=== PATIENT | female | born 1955 | race American Indian/Alaskan Native ===

== ENCOUNTER 2016-05-25 14:42 | Outpatient (CLI) | payer BC ==
--- NOTE | 2016-05-25 15:25 | Cat Scan Report ---
CT scan of head without contrast: History: Left leg numbness. Findings: Ventricles are normal in size and midline in location. No evidence of acute ischemia, hemorrhage or mass. No extra-axial fluid collection. Normal brainstem and cerebellum. Normal sinuses. Suspicion of acute/chronic right mastoiditis. Impression: No acute intracranial abnormality. Right acute/chronic mastoiditis.
--- NOTE | 2016-05-26 11:44 | Vascular Lab Report ---
CAROTID DUPLEX STUDY: RIGHT PSVEDV CCA PROX:9223 CCA DIST:9125 ICA PROX:6518 ICA MID:9634 ICA DIST:7828 ECA: 53 VERT: 48 19 LEFT PSVEDV CCA PROX:9020 CCA DIST:8024 ICA PROX:8122 ICA MID:7033 ICA DIST:8434 ECA: 72 VERT: 32 9 REASON FOR EXAM: Left-sided numbness. COMMENTS ON THE RIGHT: Doppler frequency analysis is consistent with 16 to 49 percent diameter reduction of the internal carotid artery. Minimal amount of plaque is seen. The common carotid artery is patent. The external carotid artery is patent. The vertebral artery has antegrade flow. COMMENTS ON THE LEFT: Doppler frequency analysis is consistent with 16 to 49 percent diameter reduction of the internal carotid artery. Minimal amount of plaque is seen. The common carotid artery is patent. The external carotid artery is patent. The vertebral artery has antegrade flow. IMPRESSION: Less than 50% diameter reduction in the internal carotid arteries bilaterally. Consider repeat carotid artery duplex in 12 months.
== END 2016-05-25 14:43 | disposition home or self-care (01) ==
LOC: VAS 14:42
PROVIDERS: ATTEND Family Medicine
DX: I65.23 Occlusion and stenosis of bilateral carotid arteries (principal); H70.11 Chronic mastoiditis, right ear
CPT/HCPCS: 70450; 93880

== ENCOUNTER 2016-06-07 17:04 | Emergency (ER) | payer BC ==
[2016-06-07 17:55] LABS: Basophils % (Auto) 0.6 % (0.0-1.8); Eosinophils % (Auto) 1.2 % (0.0-4.3); Hemoglobin 13.3 gm/dl (10.1-14.3); Mean Corpuscular HGB Conc 32 % (30-34); Mean Corpuscular Volume 79 fl (79-97); Platelet Count 330 K/mm3 (140-440); Red Cell Distribution Width 15.6 % (13.2-15.2); White Blood Count 6.4 K/mm3 (4.5-11.0)
[2016-06-07 18:05] LABS: Mean Corpuscular Hemoglobin 26 pg (28-32)
[2016-06-07 18:14] LABS: Creatine Kinase MB 2.2 ng/mL (0.0-4.0)
[2016-06-07 18:16] LABS: Anion Gap 19 mmol/L; BUN/Creatinine Ratio 13.75; Blood Urea Nitrogen 11 mg/dL (7-17); Calcium 9.3 mg/dL (8.4-10.2); Carbon Dioxide 25 mmol/L (22-30); Chloride 99.1 mmol/L (98-107); Creatine Kinase 135 units/L (30-135); Glucose 92 mg/dL (65-100); Sodium 139 mmol/L (137-145)
[2016-06-07 23:02] LABS: Creatine Kinase MB 1.6 ng/mL (0.0-4.0); INR 1.03 (0.87-1.13)
[2016-06-07 23:03] LABS: Alanine Aminotransferase 29 units/L (7-56); Albumin 4.5 g/dL (3.9-5); Albumin/Globulin Ratio 1.6 %; Alkaline Phosphatase 119 units/L (35-129); Bilirubin,Total 0.2 mg/dL (0.1-1.2); Creatine Kinase 125 units/L (30-135); Total Protein 7.4 g/dL (6.3-8.2)
[2016-06-07 23:04] LABS: Bilirubin,Direct < 0.2 mg/dL (0-0.2)
[2016-06-08] MEDS ORDERED: MOTRIN PO ONE (05:01)
[2016-06-08] MEDS ORDERED: TYLENOL PO ONE (05:05)
--- NOTE | 2016-06-08 05:24 | Emergency Department Report ---
ED Neuro Deficit HPI - General Chief Complaint: Chest Pain Stated Complaint: CP/TINGLING ON LEFT SIDE Time Seen by Provider: 06/08/16 02:24 Source: patient Mode of arrival: Ambulatory Limitations: No Limitations - History of Present Illness Initial Comments: 61F PMH HTN, Obesity presents with complaint of 2 weeks of left upper extremity left lower extremity and left facial paresthesias. Patient describes sensation of persistent and intensifying tingling and numbness in the described areas. Patient also states that she has had intermittent chest pains sporadically over the last week lasting a few seconds with some radiation to left shoulder. Patient went to her primary care doctor approximately 2 weeks ago for these symptoms had an outpatient CT and a carotid Doppler done. Both tests unremarkable except for suggestion of possible right-sided mastoiditis. Patient started on antibiotics by her primary care doctor for mastoiditis. Patient denies any fever no chills no earache states that she primarily is concerned about the tingling sensation which has persisted and intensified over the last 2 weeks and awake alert and oriented 3 does not appear to be in acute distress fully ambulatory without assistance speaking in full sentences and no slurred speech no facial droop. Patient states she takes aspirin 81 mg twice a day. Onset/Timin -: week(s) Location: left face, left arm, left leg Place: home Severity: moderate Quality: numb, tingling, constant Worsens With: none - Related Data Home Medications: Home Medications Medication Instructions Recorded Confirmed Last Taken Amlodipine Besylate [Norvasc] 2.5 mg PO DAILY 06/08/16 06/08/16 Unknown Gabapentin [Neurontin] 100 mg PO BID 06/08/16 06/08/16 Unknown traMADol [Ultram] 50 mg PO DAILY PRN 06/08/16 06/08/16 Unknown Allergies/Adverse Reactions: Allergies Allergy/AdvReac Type Severity Reaction Status Date / Time fluticasone propionate Allergy Dizziness Unverified 05/25/16 14:45 [From Flonase] ED Review of Systems ROS: Stated complaint: CP/TINGLING ON LEFT SIDE Other details as noted in HPI ED Past Medical Hx - Past Medical History Hx Hypertension: Yes Hx Arthritis: Yes - Surgical History Hx Breast Surgery: Yes (breast reduction) Additional Surgical History: - Social History Smoking Status: Never Smoker Substance Use Type: None - Medications Home Medications: Home Medications Medication Instructions Recorded Confirmed Last Taken Type Amlodipine Besylate [Norvasc] 2.5 mg PO DAILY 06/08/16 06/08/16 Unknown History Gabapentin [Neurontin] 100 mg PO BID 06/08/16 06/08/16 Unknown History traMADol [Ultram] 50 mg PO DAILY PRN 06/08/16 06/08/16 Unknown History ED Neuro Physical Exam - General Limitations: No Limitations General appearance: alert, in no apparent distress Suspected Stroke: Yes - Head Head exam: Present: atraumatic, normocephalic - Eye Eye exam: Present: normal appearance, PERRL, EOMI - ENT ENT exam: Present: mucous membranes moist - Neck Neck exam: Present: normal inspection - Respiratory Respiratory exam: Present: normal lung sounds bilaterally. Absent: respiratory distress - Cardiovascular Cardiovascular Exam: Present: regular rate, normal rhythm. Absent: systolic murmur, diastolic murmur, rubs, gallop - GI/Abdominal GI/Abdominal exam: Present: soft, normal bowel sounds - Extremities Exam Extremities exam: Present: normal inspection - Back Exam Back exam: Present: normal inspection - Neurological Exam Neurological exam: Present: alert, oriented X3, CN II-XII intact, normal gait - NIHSS Assessment Interval: 7-10 Days 1a. Level of Consciousness: alert 1b. LOC Questions: answers correctly 1c. LOC Commands: performs tasks correctly 2. Best Gaze: normal 3. Visual: no visual loss 4. Facial Palsy: normal symmetrical movement 5b. Motor Arm Right: no drift 5a. Motor Arm Left: no drift 6a. Motor Leg Left: no drift 6b. Motor Leg Right: no drift 7. Limb Ataxia: absent 8. Sensory: normal 9. Best Language: no aphasia 10. Dysarthria: normal 11. Extinction/Inattention: no abnormality Total Score: 0 Stroke Severity: No Stroke Symptoms - Psychiatric Psychiatric exam: Present: normal affect, normal mood - Skin Skin exam: Present: warm, dry, intact, normal color. Absent: rash ED Course Vital Signs 06/07/16 06/07/16 06/08/16 17:22 21:53 00:34 Temperature 99.2 F 98.7 F 98.9 F Pulse Rate 94 H 89 101 H Respiratory 22 20 16 Rate Blood Pressure 145/88 135/76 Blood Pressure 140/85 [Left] O2 Sat by Pulse 100 98 Oximetry 0206/08/16 06/08/16 03:24 06:49 09:06 Temperature Pulse Rate 90 88 97 H Respiratory 18 20 18 Rate Blood Pressure Blood Pressure 138/86 142/86 117/78 [Left] O2 Sat by Pulse 100 97 99 Oximetry - Lab Data Result diagrams: 06/07/16 17:42 06/07/16 17:42 Lab Results 06/07/16 06/07/16 06/07/16 Range/Units 17:42 17:42 22:23 WBC 6.4 (4.5-11.0) K/mm3 RBC 5.20 H (3.65-5.03) M/mm3 Hgb 13.3 (10.1-14.3) gm/dl Hct 41.0 (30.3-42.9) % MCV 79 (79-97) fl MCH 26 L (28-32) pg MCHC 32 (30-34) % RDW 15.6 H (13.2-15.2) % Plt Count 330 (140-440) K/mm3 Lymph % (Auto) 36.7 H (13.4-35.0) % [place] % (Auto) 7.8 H (0.0-7.3) % Eos % (Auto) 1.2 (0.0-4.3) % Baso % (Auto) 0.6 (0.0-1.8) % Lymph # 2.4 (1.2-5.4) K/mm3 [place] # 0.5 (0.0-0.8) K/mm3 Eos # 0.1 (0.0-0.4) K/mm3 Baso # 0.0 (0.0-0.1) K/mm3 Seg Neutrophils % 53.7 (40.0-70.0) % Seg Neutrophils # 3.4 (1.8-7.7) K/mm3 PT (12.2-14.9) Sec. INR (0.87-1.13) Sodium 139 (137-145) mmol/L Potassium 4.0 (3.6-5.0) mmol/L Chloride 99.1 (98-107) mmol/L Carbon Dioxide 25 (22-30) mmol/L Anion Gap 19 mmol/L BUN 11 (7-17) mg/dL Creatinine 0.8 (0.7-1.2) mg/dL Estimated GFR > 60 ml/min BUN/Creatinine Ratio 13.75 % Glucose 92 (65-100) mg/dL Calcium 9.3 (8.4-10.2) mg/dL Magnesium (1.7-2.3) mg/dL Total Bilirubin (0.1-1.2) mg/dL Direct Bilirubin (0-0.2) mg/dL Indirect Bilirubin mg/dL AST (5-40) units/L ALT (7-56) units/L Alkaline Phosphatase (35-129) units/L Total Creatine Kinase 135 125 (30-135) units/L CK-MB (CK-2) 1.6 (0.0-4.0) ng/mL CK-MB (CK-2) Rel Index 1.6 1.2 (0-4) Troponin T < 0.010 < 0.010 (0.00-0.029) ng/mL Total Protein (6.3-8.2) g/dL Albumin (3.9-5) g/dL Albumin/Globulin Ratio % Urine Color (Yellow) Urine Turbidity (Clear) Urine pH (5.0-7.0) Ur Specific [place] (1.003-1.030) Urine Protein (Negative) mg/dL Urine Glucose (UA) (Negative) mg/dL Urine Ketones (Negative) mg/dL Urine Blood (Negative) Urine Nitrite (Negative) Urine Bilirubin (Negative) Urine Urobilinogen (<2.0) mg/dL Ur Leukocyte Esterase (Negative) Urine WBC (Auto) (0.0-6.0) /HPF Urine RBC (Auto) (0.0-6.0) /HPF U Epithel Cells (Auto) (0-13.0) /HPF Urine Bacteria (Auto) (Negative) /HPF Urine Mucus /HPF 06/07/16 06/07/16 06/07/16 Range/Units 22:23 22:23 22:23 WBC (4.5-11.0) K/mm3 RBC (3.65-5.03) M/mm3 Hgb (10.1-14.3) gm/dl Hct (30.3-42.9) % MCV (79-97) fl MCH (28-32) pg MCHC (30-34) % RDW (13.2-15.2) % Plt Count (140-440) K/mm3 Lymph % (Auto) (13.4-35.0) % [place] % (Auto) (0.0-7.3) % Eos % (Auto) (0.0-4.3) % Baso % (Auto) (0.0-1.8) % Lymph # (1.2-5.4) K/mm3 [place] # (0.0-0.8) K/mm3 Eos # (0.0-0.4) K/mm3 Baso # (0.0-0.1) K/mm3 Seg Neutrophils % (40.0-70.0) % Seg Neutrophils # (1.8-7.7) K/mm3 PT 13.4 (12.2-14.9) Sec. INR 1.03 (0.87-1.13) Sodium (137-145) mmol/L Potassium (3.6-5.0) mmol/L Chloride (98-107) mmol/L Carbon Dioxide (22-30) mmol/L Anion Gap mmol/L BUN (7-17) mg/dL Creatinine (0.7-1.2) mg/dL Estimated GFR ml/min BUN/Creatinine Ratio % Glucose (65-100) mg/dL Calcium (8.4-10.2) mg/dL Magnesium 2.2 (1.7-2.3) mg/dL Total Bilirubin 0.2 (0.1-1.2) mg/dL Direct Bilirubin < 0.2 (0-0.2) mg/dL Indirect Bilirubin 0.0 mg/dL AST 24 (5-40) units/L ALT 29 (7-56) units/L Alkaline Phosphatase 119 (35-129) units/L Total Creatine Kinase (30-135) units/L CK-MB (CK-2) (0.0-4.0) ng/mL CK-MB (CK-2) Rel Index (0-4) Troponin T (0.00-0.029) ng/mL Total Protein 7.4 (6.3-8.2) g/dL Albumin 4.5 (3.9-5) g/dL Albumin/Globulin Ratio 1.6 % Urine Color (Yellow) Urine Turbidity (Clear) Urine pH (5.0-7.0) Ur Specific [place] (1.003-1.030) Urine Protein (Negative) mg/dL Urine Glucose (UA) (Negative) mg/dL Urine Ketones (Negative) mg/dL Urine Blood (Negative) Urine Nitrite (Negative) Urine Bilirubin (Negative) Urine Urobilinogen (<2.0) mg/dL Ur Leukocyte Esterase (Negative) Urine WBC (Auto) (0.0-6.0) /HPF Urine RBC (Auto) (0.0-6.0) /HPF U Epithel Cells (Auto) (0-13.0) /HPF Urine Bacteria (Auto) (Negative) /HPF Urine Mucus /HPF 06/08/16 Range/Units Unknown WBC (4.5-11.0) K/mm3 RBC (3.65-5.03) M/mm3 Hgb (10.1-14.3) gm/dl Hct (30.3-42.9) % MCV (79-97) fl MCH (28-32) pg MCHC (30-34) % RDW (13.2-15.2) % Plt Count (140-440) K/mm3 Lymph % (Auto) (13.4-35.0) % [place] % (Auto) (0.0-7.3) % Eos % (Auto) (0.0-4.3) % Baso % (Auto) (0.0-1.8) % Lymph # (1.2-5.4) K/mm3 [place] # (0.0-0.8) K/mm3 Eos # (0.0-0.4) K/mm3 Baso # (0.0-0.1) K/mm3 Seg Neutrophils % (40.0-70.0) % Seg Neutrophils # (1.8-7.7) K/mm3 PT (12.2-14.9) Sec. INR (0.87-1.13) Sodium (137-145) mmol/L Potassium (3.6-5.0) mmol/L Chloride (98-107) mmol/L Carbon Dioxide (22-30) mmol/L Anion Gap mmol/L BUN (7-17) mg/dL Creatinine (0.7-1.2) mg/dL Estimated GFR ml/min BUN/Creatinine Ratio % Glucose (65-100) mg/dL Calcium (8.4-10.2) mg/dL Magnesium (1.7-2.3) mg/dL Total Bilirubin (0.1-1.2) mg/dL Direct Bilirubin (0-0.2) mg/dL Indirect Bilirubin mg/dL AST (5-40) units/L ALT (7-56) units/L Alkaline Phosphatase (35-129) units/L Total Creatine Kinase (30-135) units/L CK-MB (CK-2) (0.0-4.0) ng/mL CK-MB (CK-2) Rel Index (0-4) Troponin T (0.00-0.029) ng/mL Total Protein (6.3-8.2) g/dL Albumin (3.9-5) g/dL Albumin/Globulin Ratio % Urine Color Straw (Yellow) Urine Turbidity Clear (Clear) Urine pH 6.0 (5.0-7.0) Ur Specific [place] 1.010 (1.003-1.030) Urine Protein <15 mg/dl (Negative) mg/dL Urine Glucose (UA) Neg (Negative) mg/dL Urine Ketones Neg (Negative) mg/dL Urine Blood Neg (Negative) Urine Nitrite Neg (Negative) Urine Bilirubin Neg (Negative) Urine Urobilinogen < 2.0 (<2.0) mg/dL Ur Leukocyte Esterase Sm (Negative) Urine WBC (Auto) 2.0 (0.0-6.0) /HPF Urine RBC (Auto) 3.0 (0.0-6.0) /HPF U Epithel Cells (Auto) 6.0 (0-13.0) /HPF Urine Bacteria (Auto) 4+ (Negative) /HPF Urine Mucus Few /HPF - Medical Decision Making A/P: Left upper extremity left lower extremity and facial paresthesias 1-I discussed case with Dr. Maxwell as pt is c/o persistent and intensifying paresthesias of the left side of her body including face arm and leg. Patient had negative CT 2 weeks ago but is experiencing persistent symptoms despite use of gabapentin and is already on daily aspirin. Patient has no focal neurological deficit no weakness and no sensory deficit no facial droop no slurred speech no upper or lower extremity drift and no ataxia no visual field deficit however is complaining of these persistent sensory symptoms. I called on-call neurologist Dr. Weldon and discussed case with him, recommendation to do a noncontrast MRI of brain for potential thalamic infarct based on history and symptoms. I informed patient that she will require an MRI as part of the workup and that she may have to wait a few hours in order to obtain MRI 2-I signed out pt to OSEAS Marshall, will /fu MRI result and admit if it shows any evidence of stroke or DC w/ neuro f/u if negative 3- UPDATE , pt had unremarkable MRI brain noncon, pt given f/u with outpt neuro and discharged as per d/w ED attending and neuro consult by OSEAS Marshall- OSEAS Siegel. Critical care attestation.: If time is entered above; I have spent that time in minutes in the direct care of this critically ill patient, excluding procedure time. ED Disposition Clinical Impression: Arm paresthesia, right, Facial paresthesia, Chest pain, Sore throat (viral) Disposition: DISCHARGED TO HOME OR SELFCARE Is pt being admited?: No Does the pt Need Aspirin: Yes Condition: Stable Instructions: Chest Pain (ED) Referrals: IRLANDA ROBERTS MD [Staff Physician] - 3-5 Days [facility] [Staff Physician] - 3-5 Days PRIMARY CARE, [Primary Care Provider] - 3-5 Days Forms: Work/School Release Form(ED)
[2016-06-08 05:51] LABS: Bacteria,Urine 4+ /HPF (Negative); Bilirubin,Urine NEG (Negative); Blood,Urine NEG (Negative); Ketones,Urine NEG (Negative); Leukocyte Esterase,Urine SM (Negative); Mucus,Urine FEW /HPF; Nitrite,Urine NEG (Negative); Protein,Urine <15 mg/dL mg/dL (Negative); Urobilinogen,Urine < 2.0 mg/dL (<2.0)
--- NOTE | 2016-06-08 07:46 | XRay Report ---
ROUTINE CHEST, TWO VIEWS: HISTORY: chest pain. The trachea, heart, mediastinal contour, lung alvarado and bony thorax are unremarkable. IMPRESSION: Unremarkable chest x-ray. No change since 02/20/14.
--- NOTE | 2016-06-08 08:34 | Magnetic Resonance Report ---
MRI OF THE BRAIN WITHOUT CONTRAST: HISTORY: CVA PROCEDURE: Multiplanar, multisequence MR imaging of the brain without IV contrast was performed. COMPARISON: CT head dated 05/25/16. FINDINGS: The brain parenchyma signal intensity and its aldana white interface are within normal limits on all sequences. No evidence for acute ischemia, hemorrhage or mass. No chronic infarct or extra-axial fluid collection. The midline structures are central. The basal cisterns are patent. Normal ventricular size. The orbital cavities and sella turcica demonstrate no abnormality. The visualized paranasal sinuses and mastoid air cells are well aerated. Trace fluid is noted in the right mastoid air cells. IMPRESSION: Unremarkable non-enhanced MRI of the brain.
--- NOTE | 2016-06-08 08:46 | Emergency Department Report ---
HPI - General Chief Complaint: Chest Pain Time Seen by Provider: 06/08/16 02:24 - HPI HPI: 61-year-old female presents to the ED with paresthesias of face and arm as well as CP. seen by OSEAS Siegel. Patient was carried over to my shift for MRI of the brain. MRI is negative for stroke of the thalamus as this was a concern with presenting symptoms. CP workup is negative. Patient in no acute distress at this time. VSS for DC. I did not do history and physical of my own as it was already done by previous provider. ED Past Medical Hx - Past Medical History Hx Hypertension: Yes Hx Arthritis: Yes - Surgical History Hx Breast Surgery: Yes (breast reduction) Additional Surgical History: - Social History Smoking Status: Never Smoker Substance Use Type: None - Medications Home Medications: Home Medications Medication Instructions Recorded Confirmed Last Taken Type Amlodipine Besylate [Norvasc] 2.5 mg PO DAILY 06/08/16 06/08/16 Unknown History Gabapentin [Neurontin] 100 mg PO BID 06/08/16 06/08/16 Unknown History traMADol [Ultram] 50 mg PO DAILY PRN 06/08/16 06/08/16 Unknown History ED Review of Systems ROS: Stated complaint: CP/TINGLING ON LEFT SIDE Other details as noted in HPI Physical Exam - Physical Exam Vital Signs: Vital Signs 06/07/16 06/07/16 06/08/16 17:22 21:53 00:34 Temperature 99.2 F 98.7 F 98.9 F Pulse Rate 94 H 89 101 H Respiratory 22 20 16 Rate Blood Pressure 145/88 135/76 Blood Pressure 140/85 [Left] O2 Sat by Pulse 100 98 Oximetry 06/08/16 06/08/16 03:24 06:49 Temperature Pulse Rate 90 88 Respiratory 18 20 Rate Blood Pressure Blood Pressure 138/86 142/86 [Left] O2 Sat by Pulse 100 97 Oximetry ED Course Vital Signs 06/07/16 06/07/16 06/08/16 17:22 21:53 00:34 Temperature 99.2 F 98.7 F 98.9 F Pulse Rate 94 H 89 101 H Respiratory 22 20 16 Rate Blood Pressure 145/88 135/76 Blood Pressure 140/85 [Left] O2 Sat by Pulse 100 98 Oximetry 06/08/16 06/08/16 03:24 06:49 Temperature Pulse Rate 90 88 Respiratory 18 20 Rate Blood Pressure Blood Pressure 138/86 142/86 [Left] O2 Sat by Pulse 100 97 Oximetry ED Medical Decision Making - Lab Data Result diagrams: 06/07/16 17:42 06/07/16 17:42 Critical care attestation.: If time is entered above; I have spent that time in minutes in the direct care of this critically ill patient, excluding procedure time. ED Disposition Clinical Impression: Arm paresthesia, right, Facial paresthesia, Chest pain, Sore throat (viral) Disposition: DISCHARGED TO HOME OR SELFCARE Is pt being admited?: No Does the pt Need Aspirin: No Condition: Stable Instructions: Chest Pain (ED) Referrals: PRIMARY CARE, [Primary Care Provider] - 3-5 Days IRLANDA ROBERTS MD [Staff Physician] - 3-5 Days SHARAD SANTILLAN MD [Staff Physician] - 3-5 Days Forms: Work/School Release Form(ED) Time of Disposition: 08:47
[2016-06-08 09:07] VITALS: BP 117/78
== END 2016-06-08 09:06 | disposition home or self-care (01) ==
LOC: ED 17:04
DX: R20.8 Other disturbances of skin sensation (principal); R07.9 Chest pain, unspecified; J06.9 Acute upper respiratory infection, unspecified; I10 Essential (primary) hypertension; M19.90 Unspecified osteoarthritis, unspecified site; Z88.0 Allergy status to penicillin
CPT/HCPCS: 36415; 70551; 71020; 80048; 80074; 81001; 82550; 82553; 83735; 84484; 85025; 85610; 93005; 93010

== ENCOUNTER 2016-08-26 13:00 | Outpatient (CLI) | payer BC ==
--- NOTE | 2016-08-26 16:02 | Mammography Report ---
BILATERAL MAMMOGRAM with CAD: HISTORY:Cancer screening. Comparison study is dated June 04, 2014. FINDINGS: The breasts are almost entirely fat (<25% glandular). No mass, distortion, suspicious calcification, or skin change is seen. IMPRESSION: Negative mammogram. There is no mammographic evidence of malignancy. RECOMMENDATION: Follow-up per ACS guidelines. BI-RADS CATEGORY: 1 = Negative ACR BI-RADS MAMMOGRAPHIC CODES: 0 = Needs additional imaging evaluation; 1 = Negative; 2 = Benign; 3 = Probably benign; 4 = Suspicious; 5 = Malignant; 6 = Known biopsy-proven malignancy COMMENT: 1. Dense breast tissue, i.e., adenosis, fibrocystic changes, etc., may obscure an underlying neoplasm. 2. Approximately 10% of cancers are not detected with mammography. 3. A negative mammography report should not delay biopsy if a clinically suspicious mass is present. COMMENT: Patient follow-up letters are generated in [facility].
== END 2016-08-26 13:01 | disposition home or self-care (01) ==
LOC: MAMMO 13:00
PROVIDERS: ATTEND Family Medicine
DX: Z12.31 Encounter for screening mammogram for malignant neoplasm of breast (principal)
CPT/HCPCS: 77067; G0202

== ENCOUNTER 2017-09-06 07:24 | Outpatient (CLI) | payer OTHER ==
--- NOTE | 2017-09-06 11:29 | Mammography Report ---
BILATERAL DIGITAL SCREENING MAMMOGRAM with CAD: 09/06/17 07:24:00 CLINICAL: Routine screening. COMPARISON:08/26/16 FINDINGS: The breasts are almost entirely fatty. No mass, architectural distortion or suspicious calcifications. IMPRESSION: No mammographic evidence of malignancy. BI-RADS CATEGORY: 1 - - Negative RECOMMENDATION: Routine mammographic screening in one year. COMMENT: Patient follow-up letters are generated by our [employer] application.
== END 2017-09-06 07:25 | disposition home or self-care (01) ==
LOC: MAMMO 07:24
PROVIDERS: ATTEND Family Medicine
DX: Z12.31 Encounter for screening mammogram for malignant neoplasm of breast (principal)
CPT/HCPCS: 77067

== ENCOUNTER 2018-12-04 13:59 | Outpatient (CLI) | payer OTHER ==
--- NOTE | 2018-12-05 09:07 | Mammography Report ---
BONE DEXA CLINICAL: Postmenopausal TECHNIQUE: 2 site bone DEXA performed on an Hologic scanner. FINDINGS: The average BMD of the lumbar spine L1-L4 is 0.998g/cm squared with a T score of -0.4 and a Z score o f +0.3. The average total BMD of the right hip is 0.932 g/cm squared with a T score of -0.1and a Z score of + 0.2. IMPRESSION: 1. WHO classification: Normal with average fracture risk based on spine measurements. 2. WHO classification Normal with average fracture risk based on right hip measurements. RECOMMENDATION: Clinical correlation and routine screening. Definitions: BMD equal bone mineral density T score = BMD related to peak bone mass of young adult (Cathy expressed an standard deviation) Z score = age-matched BMD expressed in SD World health organization (WHO) diagnostic criteria Normal T score greater than equal to 1 standard deviation Osteopenia T score between -1 and -2.4 standard deviation Osteoporosis T score -2.5 standard deviation or below. Note: BMD is not the only risk factor for fracture; also consider factors such as the patient's age, risk of falling, previous osteoporotic fracture, family history of osteoporotic fractures, current sm oker and low body weight. Z scores are not calculated if greater than 80 years of age. Signer Name: Marvin Triana MD Signed: 12/05/2018 9:03 AM Workstation Name: [id number]
--- NOTE | 2018-12-05 09:17 | Mammography Report ---
BILATERAL DIGITAL SCREENING MAMMOGRAM WITH CAD INDICATION: Routine screening mammography. TECHNIQUE: Digital bilateral 2D mammography was obtained in the craniocaudal and mediolateral obliq ue projections. This examination was interpreted with the benefit of Computer-Aided Detection analysi s. COMPARISON: 09/06/2017 FINDINGS: Breast Density: The breasts are almost entirely fatty. No mass, architectural distortion or suspicious calcifications. IMPRESSION:No mammographic evidence of malignancy. BI-RADS Category 1: Negative. No mammographic evidence of malignancy. Recommend routine screening m ammography in one year. A "normal" or negative report should not discourage follow up or biopsy of a clinically significant f inding. A written summary of these findings will be mailed to the patient. The patient will be entered into a mammography reporting system which will generate a reminder letter for the patient's next appointmen t at the appropriate interval. The [employer] recommends yearly mammograms starting at age 40 and continuing as l jose as a woman is in good health. Breast MRI is recommended for women with an approximate 20-25% or greater lifetime risk of breast cancer, including women with a strong family history of breast or ova nikolas cancer or who have been treated for Hodgkin's disease. Signer Name: Marvin Triana MD Signed: 12/05/2018 9:12 AM Workstation Name: [id number]
== END 2018-12-04 14:00 | disposition home or self-care (01) ==
LOC: MAMMO 13:59
PROVIDERS: ATTEND Family Medicine
DX: Z12.31 Encounter for screening mammogram for malignant neoplasm of breast (principal); I10 Essential (primary) hypertension; Z78.0 Asymptomatic menopausal state
CPT/HCPCS: 77067; 77080

== ENCOUNTER 2020-06-06 16:47 | Emergency (ER) | payer OTHER ==
[2020-06-06] MEDS ORDERED: ASPIRIN 325 MG TAB PO ONE (17:34)
--- NOTE | 2020-06-06 17:37 | Event Note ---
ED Screening Note Date of service: 06/06/20 Time: 17:32 ED Screening Note: 65-year-old female with a past medical history of prediabetes presents with mid chest pain with as well as right-sided back pain. Patient states pain is worsened with yawning and deep breaths. Patient states symptoms started last night and got worse today. She is not on any medications ttp mid chest This initial assessment/diagnostic orders/clinical plan/treatment(s) is/are subject to change based on patients health status, clinical progression and re- assessment by fellow clinical providers in the ED. Further treatment and workup at subsequent clinical providers discretion. Patient/guardian urged not to elope from the ED as their condition may be serious if not clinically assessed and managed. Initial orders include: Labs, EKG, chest x-ray
--- NOTE | 2020-06-06 17:59 | XRay Report ---
XR chest routine 2V INDICATION / CLINICAL INFORMATION: Chest Pain COMPARISON: None available. FINDINGS: SUPPORT DEVICES: None. HEART / MEDIASTINUM: No significant abnormality. LUNGS / PLEURA: Lungs are clear. Costophrenic sulci are sharp. No pneumothorax. ADDITIONAL FINDINGS: No significant additional findings. IMPRESSION: 1. No acute findings. Signer Name: Pankaj Waller MD Signed: 06/06/2020 5:54 PM Workstation Name: [id number]
[2020-06-06 18:37] LABS: Basophils % (Auto) 0.3 % (0.0-1.8); Eosinophils # (Auto) 0.1 K/mm3 (0.0-0.4); Eosinophils % (Auto) 1.6 % (0.0-4.3); Hematocrit 40.9 % (30.3-42.9); Hemoglobin 13.5 gm/dl (10.1-14.3); Lymphocytes # (Auto) 2.8 K/mm3 (1.2-5.4); Lymphocytes % (Auto) 47.4 % (13.4-35.0); Mean Corpuscular HGB Conc 33 % (30-34); Mean Corpuscular Volume 80 fl (79-97); Monocytes # (Auto) 0.4 K/mm3 (0.0-0.8); Platelet Count 349 K/mm3 (140-440); Red Cell Distribution Width 16.2 % (13.2-15.2)
[2020-06-06 18:46] LABS: BUN/Creatinine Ratio 16; Blood Urea Nitrogen 13 mg/dL (7-17); Calcium 9.8 mg/dL (8.4-10.2); Hemolysis Index 0
--- NOTE | 2020-06-06 20:49 | Emergency Department Report ---
ED Chest Pain HPI - General Chief Complaint: Chest Pain Stated Complaint: CHEST PAIN/RT SIDED PAIN PUI?: No Time Seen by Provider: 06/06/20 20:15 Source: patient Mode of arrival: Ambulatory Limitations: No Limitations - History of Present Illness Initial Comments: Patient is a 65-year-old female who presents emergency room with complaints of chest pain and right upper quadrant abdominal pain. Patient states that her symptoms started this morning at 10 AM. Patient states that her chest pain is an 8 out of 10. Patient states her chest pain is in her right chest and right sternum. Patient states the pain is better with rest. Patient states the pain is worse with deep breath and movement. Patient denies fever or chills. Patient denies nausea vomiting. Patient denies shortness of breath. Patient denies diaphoresis. Patient also complains of right upper quadrant abdominal pain. Patient states the abdominal pain is in the right upper quadrant radiates to her back. Patient denies changes in pain with eating. Patient states that the pain is better with rest and worse with movement. Patient denies fever or chills. Patient denies nausea vomiting. Patient denies diarrhea. Patient states the abdominal pain is an 8 out of 10. Patient denies recent travel. Patient denies recent international travel. Pat ient denies exposure to the novel coronavirus. Patient denies sick contacts. Patient denies fever and chills. Patient denies cough. Patient denies diarrhea. Patient denies coming in contact with anybody with symptoms of the novel coronavirus. MD Complaint: chest pain -: Sudden Onset: during rest Pain Location: substernal, right chest Severity: severe Severity scale (0 -10): 8 Quality: sharp Consistency: constant Improves With: rest Worsens With: inspiration, movement re: denies: nausea, vomting, diaphoresis, dyspnea, sense of impending doom Other Symptoms: denies: cough, fever, syncope, rash, acid taste in mouth, leg swelling, palpitations, burping Treatments Prior to Arrival: none Aspirin use within the Past 7 Days: (0) No - Related Data Home Medications Medication Instructions Recorded Confirmed Last Taken Amlodipine Besylate [Norvasc] 2.5 mg PO DAILY 06/08/16 06/08/16 Unknown Gabapentin [Neurontin] 100 mg PO BID 06/08/16 06/08/16 Unknown traMADoL [Ultram] 50 mg PO DAILY PRN 06/08/16 06/08/16 Unknown Previous Rx's Medication Instructions Recorded Last Taken Type Naproxen 500 mg PO BID PRN #30 tablet 06/06/20 Unknown Rx Allergies Allergy/AdvReac Type Severity Reaction Status Date / Time fluticasone propionate Allergy Dizziness Verified 06/06/20 16:53 [From Flonase] Heart Score - HEART Score History: Slightly suspicious EKG: Normal Age: 45-65 Risk factors: No known risk factors Troponin: < normal limit HEART Score: 1 ED Review of Systems ROS: Stated complaint: CHEST PAIN/RT SIDED PAIN Other details as noted in HPI Constitutional: denies: chills, fever Eyes: denies: eye pain, eye discharge, vision change ENT: denies: ear pain, throat pain Respiratory: denies: cough, shortness of breath, wheezing Cardiovascular: as per HPI, chest pain. denies: palpitations Endocrine: no symptoms reported Gastrointestinal: denies: abdominal pain, nausea, diarrhea Genitourinary: denies: urgency, dysuria, discharge Musculoskeletal: denies: back pain, joint swelling, arthralgia Skin: denies: rash, lesions Neurological: denies: headache, weakness, paresthesias Psychiatric: denies: anxiety, depression Hematological/Lymphatic: denies: easy bleeding, easy bruising ED Past Medical Hx - Past Medical History Previous Medical History?: Yes Hx Hypertension: Yes Hx Arthritis: Yes - Surgical History Past Surgical History?: Yes Hx Breast Surgery: Yes (breast reduction) Additional Surgical History: - Family History Family history: no significant - Social History Smoking Status: Never Smoker Substance Use Type: None - Medications Home Medications: Home Medications Medication Instructions Recorded Confirmed Last Taken Type Amlodipine Besylate [Norvasc] 2.5 mg PO DAILY 06/08/16 06/08/16 Unknown History Gabapentin [Neurontin] 100 mg PO BID 06/08/16 06/08/16 Unknown History traMADoL [Ultram] 50 mg PO DAILY PRN 06/08/16 06/08/16 Unknown History Naproxen 500 mg PO BID PRN #30 tablet 06/06/20 Unknown Rx ED Physical Exam - General Limitations: No Limitations General appearance: alert, in no apparent distress - Head Head exam: Present: atraumatic, normocephalic - Eye Eye exam: Present: normal appearance - ENT ENT exam: Present: mucous membranes moist - Neck Neck exam: Present: normal inspection - Respiratory Respiratory exam: Present: normal lung sounds bilaterally. Absent: respiratory distress - Cardiovascular Cardiovascular Exam: Present: regular rate, normal rhythm. Absent: systolic murmur, diastolic murmur, rubs, gallop - GI/Abdominal GI/Abdominal exam: Present: soft, tenderness (Right upper quadrant tenderness), normal bowel sounds - Extremities Exam Extremities exam: Present: normal inspection - Back Exam Back exam: Present: normal inspection - Neurological Exam Neurological exam: Present: alert, oriented X3 - Psychiatric Psychiatric exam: Present: normal affect, normal mood - Skin Skin exam: Present: warm, dry, intact, normal color. Absent: rash ED Course Vital Signs 06/06/20 06/06/20 16:53 21:00 Temperature 98.7 F 97.9 F Pulse Rate 99 H 96 H Respiratory 20 18 Rate Blood Pressure 148/89 Blood Pressure 138/85 [Right] O2 Sat by Pulse 100 99 Oximetry - Reevaluation(s) Reevaluation #1: I discussed all results and clinical findings with patient. I discussed plan of care with patient. Patient agrees with plan of care. Patient is stable for discharge. Patient will be discharged home. Patient given discharge instructions. Patient voiced understanding of discharge instructions. Patient information faxed over to her local supervisor [employer] for further evaluation treatment and risk stratification. Patient's information faxed to them because the patient presented to the emergency room with complaints of chest pain. However the patient chest pain is musculoskeletal and the patient is low risk and does not require inpatient rule out. Patient's heart score is low and the patient has clinically low risk chest pain. 06/06/20 23:22 JUAN PABLO score - Juan Pablo Score Age > 65: (0) No Aspirin use within the Past 7 Days: (0) No 3 or more CAD Risk Factors: (0) No 2 or more Angina events in past 24 hrs: (1) Yes Known CAD with more than 50% Stenosis: (0) No Elevated Cardiac Markers: (0) No ST Deviation Greater than 0.5mm: (0) No JUAN PABLO Score: 1 ED Medical Decision Making - Lab Data Result diagrams: 06/06/20 17:50 06/06/20 17:50 - EKG Data -: EKG Interpreted by Me EKG shows normal: sinus rhythm, axis, intervals, QRS complexes, ST-T waves Rate: normal - Radiology Data Radiology results: report reviewed, image reviewed interpreted by me: Chest x-ray: No pneumonia, no pneumothorax, no foreign body, no osseous findings, no acute findings CT ABDOMEN AND PELVIS WITH IV CONTRAST INDICATION: Right upper quadrant pain TECHNIQUE: Following the administration of intravenous contrast, multiple axial CT images of the abdomen and pelvis were acquired. Sagittal and coronal reformats were obtained. All CT performed at this facility utilize dose reduction techniques including automated exposure control, iterative reconstruction and weight based dosing when appropriate to reduce patient radiation dose to as low as reasonably achievable. COMPARISON: No relevant prior studies are available for comparison. FINDINGS: Limited imaging of the bilateral lung bases demonstrates no acute abnormality ABDOMEN: The liver, gallbladder, spleen, pancreas, bilateral adrenal glands and bilateral kidneys show no evidence of acute abnormality. The abdominal aorta is normal in caliber with minimal atherosclerotic calcifications. There is no evidence of free fluid, free air or bowel obstruction. The appendix is not definitely identified but no pericecal inflammatory changes are present. PELVIS: No free fluid is seen within the pelvis. The urinary bladder and uterus appear normal. BONES AND SOFT TISSUES: Evaluation of bony structures demonstrates no evidence of acute bony abnormality. Evaluation of soft tissue structures demonstrates no acute soft tissue abnormality. IMPRESSION: 1. No evidence of acute inflammatory or obstructive process within the abdomen or pelvis. - Medical Decision Making Patient is a 65-year-old female who presents emergency room with complaints of chest pain and right upper quadrant abdominal pain. Patient chest pain is right sternal and right-sided chest pain. Patient's chest pain is tender to palpation. Patient's right upper quadrant pain is radiating to her back. Patient's clinical exam shows for her right upper quadrant tenderness as well. Patient had a cardiac work-up to include labs, EKG and chest x-ray. Patient's labs were essentially unremarkable patient's cardiac enzymes were negative. Patient EKG negative for acute findings and no ST changes. Patient EKG shows sinus rhythm. Patient's chest x-ray was negative for acute findings. I reviewed both EKG, the labs and the chest x-ray. The patient had a CT of the abdomen to rule out an acute gallbladder pathology. The CT scan of the abdomen was negative for acute findings. The patient's chest pain is musculoskeletal and is low risk from a cardiac standpoint. Patient heart score is low. Lynnette ent's information was faxed over to a local cardiology group for further evaluation treatment and risk stratification since the patient presented to the emergency room with complaints of chest pain. Patient stable for discharge. Patient will be discharged home. Patient given discharge instructions. Critical care attestation.: If time is entered above; I have spent that time in minutes in the direct care of this critically ill patient, excluding procedure time. ED Disposition Clinical Impression: RUQ abdominal pain, Chest wall pain, Costochondritis, acute Chest pain Qualifiers: Chest pain type: unspecified Qualified Code(s): R07.9 - Chest pain, unspecified Disposition: TO HOME OR SELFCARE Is pt being admited?: No Does the pt Need Aspirin: No Condition: Stable Instructions: Chest Pain (ED), Chest Wall Pain, [id number], Abdominal Pain, Adult, [id number], Costochondritis, [id number] Additional Instructions: Patient to follow-up with primary care in 2 to 3 days. Patient to follow-up with supervisor [employer] and orthopedist. In 2 to 3 days. Patient to rest. Patient to increase water. Patient to avoid strenuous exercise or heavy lifting until cleared by cardiology and orthopedist. Patient to take Tylenol or ibuprofen as needed for pain. Patient to take meds as directed. Patient to return to the ER if condition worsens, changes or new symptoms arise. Patient is to take aspirin 81 mg daily. Prescriptions: Naproxen 500 mg PO BID PRN #30 tablet PRN Reason: pain Referrals: PRIMARY CARE, [Primary Care Provider] - 2-3 Days KELSEY LICONA MD [Staff Physician] - 2-3 Days SILVANA CALDWELL MD [Staff Physician] - 2-3 Days Time of Disposition: 23:21
[2020-06-06 21:41] LABS: Alanine Aminotransferase 35 units/L (7-56); Albumin 4.8 g/dL (3.9-5)
[2020-06-06 21:43] LABS: Bilirubin,Direct < 0.2 mg/dL (0-0.2)
--- NOTE | 2020-06-06 22:50 | Cat Scan Report ---
CT ABDOMEN AND PELVIS WITH IV CONTRAST INDICATION: Right upper quadrant pain TECHNIQUE: Following the administration of intravenous contrast, multiple axial CT images of the abdo men and pelvis were acquired. Sagittal and coronal reformats were obtained. All CT performed at this facility utilize dose reduction techniques including automated exposure control, iterative reconstru ction and weight based dosing when appropriate to reduce patient radiation dose to as low as reasonab ly achievable. COMPARISON: No relevant prior studies are available for comparison. FINDINGS: Limited imaging of the bilateral lung bases demonstrates no acute abnormality ABDOMEN: The liver, gallbladder, spleen, pancreas, bilateral adrenal glands and bilateral kidneys show no evid ence of acute abnormality. The abdominal aorta is normal in caliber with minimal atherosclerotic calc ifications. There is no evidence of free fluid, free air or bowel obstruction. The appendix is not de finitely identified but no pericecal inflammatory changes are present. PELVIS: No free fluid is seen within the pelvis. The urinary bladder and uterus appear normal. BONES AND SOFT TISSUES: Evaluation of bony structures demonstrates no evidence of acute bony abnormal ity. Evaluation of soft tissue structures demonstrates no acute soft tissue abnormality. IMPRESSION: 1. No evidence of acute inflammatory or obstructive process within the abdomen or pelvis. Signer Name: Liliaan Lovelace MD Signed: 06/06/2020 10:45 PM Workstation Name: [id number]
[2020-06-06 23:55] VITALS: BP 136/81
== END 2020-06-06 23:46 | disposition home or self-care (01) ==
LOC: ED 16:47
DX: M94.0 Chondrocostal junction syndrome [Tietze] (principal); R07.89 Other chest pain; R10.11 Right upper quadrant pain; I10 Essential (primary) hypertension; M19.91 Primary osteoarthritis, unspecified site; Z98.890 Other specified postprocedural states; Z79.899 Other long term (current) drug therapy; Z88.8 Allergy status to other drugs, medicaments and biological substances
CPT/HCPCS: 36415; 71046; 74177; 80048; 80076; 83690; 84484; 85025; 99285; Q9967; 93005

== ENCOUNTER 2020-07-03 07:14 | Outpatient (CLI) | payer OTHER ==
--- NOTE | 2020-07-03 08:40 | Mammography Report ---
DIGITAL SCREENING MAMMOGRAM WITH CAD, 07/03/2020 CLINICAL INFORMATION / INDICATION: Routine screening TECHNIQUE: Digital bilateral 2D mammography was obtained in the craniocaudal and mediolateral obliqu e projections. This examination was interpreted with the benefit of Computer-Aided Detection analysis . COMPARISON: 12/04/2018 FINDINGS: Breast Density: The breasts are almost entirely fatty. No dominant mass, suspicious calcifications, or architectural distortion in either breast. Benign-appearing bilateral calcifications are again seen. IMPRESSION: No mammographic evidence of malignancy. Follow up recommendation: Routine yearly BI-RADS Category 2: Benign. A "normal" or negative report should not discourage follow up or biopsy of a clinically significant f inding. A written summary of these findings will be mailed to the patient. The patient will be entered into a mammography reporting system which will generate a reminder letter for the patient's next appointmen t at the appropriate interval. The [employer] recommends yearly mammograms starting at age 40 and continuing as l jose as a woman is in good health. Breast MRI is recommended for women with an approximate 20-25% or greater lifetime risk of breast cancer, including women with a strong family history of breast or ova nikolas cancer or who have been treated for Hodgkin's disease. Signer Name: Nj Tapia MD Signed: 07/03/2020 8:36 AM Workstation Name: [id number]
== END 2020-07-03 07:15 | disposition home or self-care (01) ==
LOC: MAMMO 07:14
PROVIDERS: ATTEND Family Medicine
DX: Z12.31 Encounter for screening mammogram for malignant neoplasm of breast (principal); N64.89 Other specified disorders of breast
CPT/HCPCS: 77067

== ENCOUNTER 2021-07-06 08:09 | Outpatient (CLI) | payer OTHER ==
--- NOTE | 2021-07-06 15:28 | Mammography Report ---
DIGITAL SCREENING MAMMOGRAM WITH CAD, 07/06/2021 CLINICAL INFORMATION / INDICATION: Routine screening TECHNIQUE: Digital bilateral 2D mammography was obtained in the craniocaudal and mediolateral obliqu e projections. This examination was interpreted with the benefit of Computer-Aided Detection analysis . COMPARISON: 07/03/2020 FINDINGS: Breast Density: The breasts are almost entirely fatty. No dominant mass, suspicious calcifications, or architectural distortion in either breast. Bilateral benign-appearing calcifications are again seen. Surgical changes are again noted. IMPRESSION: No mammographic evidence of malignancy. Follow up recommendation: Routine yearly BI-RADS Category 2: BENIGN. A "normal" or negative report should not discourage follow up or biopsy of a clinically significant f inding. A written summary of these findings will be mailed to the patient. The patient will be entered into a mammography reporting system which will generate a reminder letter for the patient's next appointmen t at the appropriate interval. The [employer] recommends yearly mammograms starting at age 40 and continuing as l jose as a woman is in good health. Breast MRI is recommended for women with an approximate 20-25% or greater lifetime risk of breast cancer, including women with a strong family history of breast or ova nikolas cancer or who have been treated for Hodgkin's disease. Signer Name: Nj Tapia MD Signed: 07/06/2021 3:23 PM Workstation Name: [id number]
== END 2021-07-06 08:10 | disposition home or self-care (01) ==
LOC: MAMMO 08:09
PROVIDERS: ATTEND Family Medicine
DX: Z12.31 Encounter for screening mammogram for malignant neoplasm of breast (principal); N64.89 Other specified disorders of breast
CPT/HCPCS: 77067